=== PATIENT | female | born 1965 | race Caucasian/White ===

== ENCOUNTER 2020-11-05 | Outpatient (REF) | payer MEDICARE, OTHER, SELFPAY | END 2020-11-05 00:01 | disposition home or self-care (01) | LOC: HO.WFDLNP | PROVIDERS: Visit Provider Family Medicine | DX: Z20.822 Contact with and (suspected) exposure to COVID-19 (principal) | CPT/HCPCS: U0003 ==

== ENCOUNTER 2021-07-13 13:10 | Outpatient (REF) | payer MEDICARE, OTHER, SELFPAY ==
--- NOTE | ~2021-07-13 | MM_ITS ---
EXAMINATION: BONE DENSITOMETRY CLINICAL INDICATION: Osteoporosis. COMPARISON: Previous BD dated 08/15/2019 and baseline BD dated 01/23/2009. TECHNIQUE: Using a [employer] DXA System (software version: 13.1) manufactured by [employer], dual-energy x-ray absorptiometry was performed of the lumbar spine and left hip. The images are of good technical quality. Summary results are attached. FINDINGS: AP SPINE L1-L4: Current: BMD 0.863 g/cm2, Z-score -1.2, T-score -2.6, osteoporosis, 5.7% decrease from previous, 8.7% decrease from baseline (<5% change is not significant). Prior: BMD 0.915 g/cm2. Baseline: BMD 0.945 g/cm2. LEFT FEMUR, NECK: Current: BMD 0.659 g/cm2, Z-score -1.3, T-score -2.7, osteoporosis. Prior: BMD 0.754 g/cm2. Baseline: BMD 0.857 g/cm2. LEFT FEMUR, TOTAL: Current: BMD 0.557 g/cm2, Z-score -2.5, T-score -3.6, osteoporosis, 17.2% decrease from previous, 31.9% decrease from baseline (<5% change is not significant). Prior: BMD 0.673 g/cm2. Baseline: BMD 0.818 g/cm2. IDENTIFIED RISK FACTORS: Early menopause, glucocorticoids (chronic), rheumatoid arthritis, secondary osteoporosis. HISTORY OF FRACTURE: None listed. MEDICATIONS: Calcium, vitamin D. MM/XR DEXA axial skeleton IMPRESSION: 1. DIAGNOSIS: Osteoporosis based on the lowest T-score value of -3.6 in the total femur applying World Health Organization criteria. 2. 10-YEAR FRACTURE RISK PREDICTION, FRAX: Major osteoporotic fracture (clinical spine, forearm, hip or shoulder) 16.0%. Hip fracture 4.4%. 3. Treatment Recommendations: NOF guidelines recommend consideration for treatment in postmenopausal women and men age 50 and older presenting with the following: -A hip or vertebral (clinical or morphometric) fracture. -T-score less than or equal to -2.5 at the femoral neck or spine after appropriate evaluation to exclude secondary causes. -Low bone mass at the hip or spine and a 10-year fracture probability by FRAX of greater than or equal to 3% for hip fracture or greater than or equal to 20% for major osteoporotic fracture based on the [place] adapted WHO algorithm. 4. Other Recommendations: All treatment decisions require clinical judgment and consideration of individual patient factors, including patient preferences, comorbidities, previous drug use, risk factors not captured in the FRAX model (e.g. frailty, falls, vitamin D deficiency, increased bone turnover, interval significant decline in bone density) and possible under or overestimation of fracture risk by FRAX. Additional medical evaluation for secondary cause of low bone mineral density may be appropriate. FUTURE SCAN RECOMMENDATION: People with diagnosed cases of osteoporosis or at high risk for fracture should have regular bone mineral density tests. For patients eligible for Medicare, routine testing is allowed once every 2 years. The testing frequency can be increased to one year for patients who have rapidly progressing disease, those who are receiving or discontinuing medical therapy to restore bone mass, or have additional risk factors.
== END 2021-07-13 13:11 | disposition home or self-care (01) ==
LOC: HO.MAMMO 13:10
PROVIDERS: PCP Pediatrics; Visit Provider Pediatrics Pediatric Endocrinology
DX: Z13.820 Encounter for screening for osteoporosis (principal); M81.0 Age-related osteoporosis without current pathological fracture; E27.49 Other adrenocortical insufficiency; M06.9 Rheumatoid arthritis, unspecified; Z78.0 Asymptomatic menopausal state; Z79.899 Other long term (current) drug therapy
CPT/HCPCS: 77080

== ENCOUNTER 2023-07-14 14:45 | Outpatient (REF) | payer OTHER, SELFPAY ==
--- NOTE | ~2023-07-14 | MM_ITS ---
EXAMINATION: BONE DENSITOMETRY CLINICAL INDICATION: Osteoporosis. COMPARISON: Previous BD dated 07/13/2021 and baseline BD dated 01/23/2009. TECHNIQUE: Using a [employer] DXA System (software version: 13.1) manufactured by [employer], dual-energy x-ray absorptiometry was performed of the lumbar spine and left hip. The images are of good technical quality. Summary results are attached. FINDINGS: LEFT FEMUR, NECK: Current: BMD 0.655 g/cm2, Z-score -1.4, T-score -2.8, osteoporosis. Prior: BMD 0.659 g/cm2. Baseline: BMD 0.857 g/cm2. LEFT FEMUR, TOTAL: Current: BMD 0.572 g/cm2, Z-score -2.4, T-score -3.5, osteoporosis, 2.7% increase from previous, 30.1% decrease from baseline (<5% change is not significant). Prior: BMD 0.557 g/cm2. Baseline: BMD 0.818 g/cm2. AP SPINE L1-L4: Current: BMD 1.018 g/cm2, Z-score 0.0, T-score -1.3, osteopenia, 18.0% increase from previous, 7.7% increase from baseline (<5% change is not significant). Prior: BMD 0.863 g/cm2. Baseline: BMD 0.945 g/cm2. IDENTIFIED RISK FACTORS: Early menopause, glucocorticoids (chronic), osteoporosis, rheumatoid arthritis, secondary osteoporosis. HISTORY OF FRACTURE: None listed. MEDICATIONS: Calcium, vitamin D, bisphosphonate. MM/XR DEXA axial skeleton IMPRESSION: 1. DIAGNOSIS: Osteoporosis based on the lowest T-score value of -3.5 in the total femur applying World Health Organization criteria. 2. 10-YEAR FRACTURE RISK PREDICTION, FRAX: According to the guidelines, FRAX calculation should only be performed on patients in the osteopenia bone density category. Therefore, FRAX was not performed on this patient. 3. Treatment Recommendations: NOF guidelines recommend consideration for treatment in postmenopausal women and men age 50 and older presenting with the following: -A hip or vertebral (clinical or morphometric) fracture. -T-score less than or equal to -2.5 at the femoral neck or spine after appropriate evaluation to exclude secondary causes. -Low bone mass at the hip or spine and a 10-year fracture probability by FRAX of greater than or equal to 3% for hip fracture or greater than or equal to 20% for major osteoporotic fracture based on the [place] adapted WHO algorithm. 4. Other Recommendations: All treatment decisions require clinical judgment and consideration of individual patient factors, including patient preferences, comorbidities, previous drug use, risk factors not captured in the FRAX model (e.g. frailty, falls, vitamin D deficiency, increased bone turnover, interval significant decline in bone density) and possible under or overestimation of fracture risk by FRAX. Additional medical evaluation for secondary cause of low bone mineral density may be appropriate. FUTURE SCAN RECOMMENDATION: People with diagnosed cases of osteoporosis or at high risk for fracture should have regular bone mineral density tests. For patients eligible for Medicare, routine testing is allowed once every 2 years. The testing frequency can be increased to one year for patients who have rapidly progressing disease, those who are receiving or discontinuing medical therapy to restore bone mass, or have additional risk factors.
== END 2023-07-14 14:46 | disposition home or self-care (01) ==
LOC: HO.MAMMO 14:45
PROVIDERS: PCP Student in an Organized Health Care Education/Training Program; Visit Provider Student in an Organized Health Care Education/Training Program
DX: Z13.820 Encounter for screening for osteoporosis (principal); M81.0 Age-related osteoporosis without current pathological fracture; Z78.0 Asymptomatic menopausal state
CPT/HCPCS: 77080

== ENCOUNTER 2025-07-25 12:30 | Outpatient (REF) | payer MEDICARE, SELFPAY ==
--- OUTSIDE RECORDS SUMMARY | 2024-09-09 09:15 | XMS_ITS ---
Author Organization [facility] Address [address] [place] [address] Road [address] [place], [place] [id number] Care Team Providers Care Senior Mechanical Development Engineer Name Role Phone Mireya Dolan Primary Care Provider Unavail able [place]is [place] Unavailable [phone] Jacqueline Sanchez MD Unavailable Unavailable Sierra Rabago Unavailable [phone] REASON FOR VISIT 6 Month Follow Up DEIDRE-C Encounters Encounter Location Date Provider Diagnosis [facility] [address] [place], [place] [phone] 09/09/2024 Sierra Rabago Plan Of Treatment Next Appt Details Provider Name:Luis joshi, 09/08/2025 02:00:00 PM, [address], [address], [place], [place], [id number], Progress Notes * Tanja FLYNNDOB:1965 (59 yo F)Acc No.[id number]:09/09/2024 F/U [place] Patient: Estefanía ESPINOZA Tanja Provider: Viki Rabago MD :1965 A ge:58 Y S ex:Female Date:09/09/2024 Address:[address], [id number] Pcp:Mireya Dolan Subjective: * Chief Complaints: * 1 . 6 Month Follow Up DEIDRE-C. * Medical History: Objective: * Vitals: Assessment: Plan: * Treatment: * Images: * Electronic signature of Monique Rabago MD on 07/25/2025 at 01:10 PM EDT Sign off status: Pending * Provider: Viki Rabago MD Date: 11/09/2023 Generated for Alonzo hutton/Sydney/Ernestina on: 01:10 PM EDT
--- NOTE | ~2025-07-25 | MM_ITS ---
EXAMINATION: DXA BONE DENSITY AXIAL HISTORY: M81.0 OSTEOPOROSIS TECHNIQUE: [employer] Dual energy absorptiometry (DEXA) of the lumbar spine, total left hip, and femoral neck was performed. COMPARISON: Comparison is made with the prior examination dated 07/14/2023. FINDINGS: The bone mineral density of the lumbar spine is 0.902 g/cm2, corresponding to a T-score of -2.5, and a Z-score of -1.0. This is indicative of osteoporosis. This represents a BMD change of -10.5% compared to the prior exam. This is statistically significant. The bone mineral density of the left total hip is 0.561 g/cm2, corresponding to a T-score of -3.5, and a Z-score of -2.4. This is indicative of osteoporosis. This represents a BMD change of -1.9% compared to the prior exam. This is not statistically significant. The bone mineral density of the left femoral neck is 0.632 g/cm2, corresponding to a T-score of -2.9, and a Z-score of -1.5. This is indicative of osteoporosis. This represents a BMD change of -3.5% compared to the prior exam. FRACTURE RISK: The FRAX index suggests a ten year probability of major osteoporotic fracture of 27.4%, and of hip fracture 9.3%. MM/XR DEXA axial skeleton IMPRESSION: Based on bone mineral density, and according to World Health Organization (WHO) criteria, the diagnosis is consistent with osteoporosis. Statistically, 68% of repeat scans fall within 1 SD (+/- 0.010 g/cm2 for AP spine L1-L4) and 1 SD (+/- 0.012 g/cm2 for femur total) FRAX is a trademark of the [employer], a World Health Organization (WHO) Collaborating Center. Electronically signed by: Lisandro Cancino MD 07/25/2025 01:08 PM EDT
--- OUTSIDE RECORDS SUMMARY | 2025-07-25 13:11 | XMS_ITS | Patient Health Record ---
Author Organization [facility] [place] Address [address] [place] [id number] Care Team Providers Care Construction Trench Digger Name Role Phone Mireya Dolan Primary Care Provider Unavail able [place] Unavailable Jacqueline Sanchez MD Unavailable Unavailable Sierra Rabago Unavailable [phone] Lorna Henry Unavailable [phone] Luis Leon Unavailable [phone] Allergies Allergen (clinical drug ingredient) Drug/Non Drug Allergy documented on EMR Reaction Allergy Type Onset Date Status EPINEPHrine anaphylaxis Drug Allergy Act gorge sulfites anaphylaxis Drug Allergy Activ e Reason For Referral No Information Medications Medication SIG (Take, Route, Frequency, Duration) Notes Start Date End Date Status Calcium 600 MG 1 tablet with meals Orally Twice a day; Duration: 30 day(s) Active Vitamin B 12 100 MCG as directed Orally Active Terbinafine 250mg Active Vitamin D (Ergocalciferol) 69832 UNIT TAKE 1 CAPSULE BY MOUTH EVERY WEEK Oral; Duration: 84 Active Entresto 24-26 MG 1 tablet Orally Twic e a day Active Fasenra 30 MG/ML 1 null Subcutaneous Active Farxiga 10 MG 1 tablet Orally Once a day Active Furosemide 20 MG 1 tablet Orally Once a day Active LORazepam 1 MG 1 tablet at bedtime as needed Orally Once a day Active Dorzolamide HCl 2 % 1 drop into affected eye Ophthalmic Three times a day Active cloNIDine 0.2 MG/24HR 1 patch to skin Transdermal Active Metoprolol Succinate 25 MG 1 capsule Orally Once a day Active Aspir-81 Active Albuterol prn Active Suboxone 2-0.5 MG 1 film under the tongue and allow to dissolve Sublingual Once a day Active Hydrocortisone 5 MG 1 tablet with food o r milk Orally every 8 hrs 15 mg daily Active Problems Problem Type SNOMED Code ICD Code Onset Dates Problem Status W/U Status Risk Notes Problem Primary insomnia (2505179) Primary insomnia (F51.01) Active confirmed Problem Obstructive sleep apnea syndrome (72724392) DEIDRE (obstructive sleep apnea) (G47.33) Active confirmed Problem Excessive daytime sleepiness (8786226646) Excessive daytime sleepiness (G47.19) Active confirmed Problem Anxiety (50805767) Anxiety (F41.9) Active confirmed Problem Uncomplicated moderate persistent asthma (369063418) Moderate persistent asthma without complication (J45.40) Active confirmed Problem Vasculitis (18077817) Vasculitis (I77.6) Active confirmed Problem Depressive disorder (disorder) (15840933) Depression, unspecified depression type (F32.9) Active confirmed Problem Poor sleep pattern (828904328) Poor sleep pattern (G47.8) Active confirmed Problem Personal history of primary malignant neoplasm of breast (802426283) History of breast cancer (Z85.3) Active confirmed Problem Treatment-emergen t central sleep apnea (843237898) Treatment-emerge nt central sleep apnea (G47.31) Active confirmed Vital Signs Heart Rate 52 /min 07/14/2025 Temperature 97.1 degrees Fahrenheit 03/31/2025 Respiratory Rate 16 /min 07/14/2025 Blood pressure diastolic 78 mm Hg 07/14/2025 Height 64 in 07/14/2025 Blood pressure systolic 118 mm Hg 07/14/2025 Weight 122 lbs 07/14/2025 BMI 20.94 kg/m2 07/14/2025 Encounters Encounter Location Date Provider Diagnosis [facility] [address] [id number] 09/27/2024 Lorna Henry DEIDRE (obstructive sleep apnea) G47.33 ; Treatment-emergent central sleep apnea G47.31 ; Primary insomnia F51.01 ; Excessive daytime sleepiness G47.19 and Poor sleep pattern G47.8 [facility] [address] [id number] 03/31/2025 Lorna Henry DEIDRE (obstructive sleep apnea) G47.33 ; Treatment-emergent central sleep apnea G47.31 ; Primary insomnia F51.01 ; Excessive daytime sleepiness G47.19 and Poor sleep pattern G47.8 [facility] - [address] [id number] 07/14/2025 Luis Leon DEIDRE (obstructive sleep apnea) G47.33 ; Treatment-emergent central sleep apnea G47.31 ; Primary insomnia F51.01 ; Excessive daytime sleepiness G47.19 and Poor sleep pattern G47.8 [facility] - [address] [id number] 04/08/[address] [facility] [address] [place], [place] [id number] 05/28/2025 [facility] [address] [place], [place] [id number] 07/07/[address] [facility] [address] [id number] 04/07/[address] [facility] [address] [id number] 04/24/[address] [facility] [address] [id number] 04/28/2025 Esquivel [facility] [address] [id number] 05/11/2025 Esquivel [facility] [address] [id number] 06/19/[address] [facility] [address] [id number] 07/07/2025 Luis Leon Assessments Encounter Date Diagnosis (ICD Code) Assessment Notes Treatment Notes Treatment Clinical Notes Section Notes 09/27/2024 DEIDRE (obstructive sleep apnea) (ICD-10 - G47.33) She is using her ASV machine and benefiting from using it. I will obtain copy of recent echocardiogram given her recent history of ventricular tachycardia with low EF. For now she will continue on ASV with same settings. I will reevaluate her in six months. 03/31/2025 DEIDRE (obstructive sleep apnea) (ICD-10 - G47.33) She is using her ASV machine and benefiting from using it. Recent history of ventricular tachycardia with low EF. Most recent echo from 11/06/2024 shows EF 35-40%. I will send her for CPAP/BiPAP titration as ASV is not indicated in patients with EF less than 45%. For now she will continue on ASV with same settings. ASV care instructions were reviewed. 07/14/2025 DEIDRE (obstructive sleep apnea) (ICD-10 - G47.33) Will need to start on CPAP 03/31/2025 Treatment-emerg ent central sleep apnea (ICD-10 - G47.31) As above. Continue on ASV. 09/27/2024 Treatment-emerg ent central sleep apnea (ICD-10 - G47.31) Continue on ASV. 07/14/2025 Treatment-emerg ent central sleep apnea (ICD-10 - G47.31) As above. Start CPAP 09/27/2024 Primary insomnia (ICD-10 - F51.01) Patient has been doing very well and does not want to trial medication. Previously failed therapy with multiple medications. She is aware that her bedroom should be cool quiet and dark. Advised to get up and read a book or a magazine if she is unable to sleep for 20 or 30 minutes, then go back to bed when she is sleepy. 03/31/2025 Primary insomnia (ICD-10 - F51.01) Patient has been doing very well and does not want to trial medication. Previously failed therapy with multiple medications. She is aware that her bedroom should be cool quiet and dark. Advised to get up and read a book or a magazine if she is unable to sleep for 20 or 30 minutes, then go back to bed when she is sleepy. 07/14/2025 Primary insomnia (ICD-10 - F51.01) Patient has been doing very well and does not want to trial medication. Previously failed therapy with multiple medications. She is aware that her bedroom should be cool quiet and dark. Advised to get up and read a book or a magazine if she is unable to sleep for 20 or 30 minutes, then go back to bed when she is sleepy. 07/14/2025 Excessive daytime sleepiness (ICD-10 - G47.19) Will switch to CPAP 03/31/2025 Excessive daytime sleepiness (ICD-10 - G47.19) Improved with ASV. 09/27/2024 Excessive daytime sleepiness (ICD-10 - G47.19) Improved with ASV. 09/27/2024 Poor sleep pattern (ICD-10 - G47.8) Advised to maintain a regular bedtime and wakeup time. She has been doing well with this. 03/31/2025 Poor sleep pattern (ICD-10 - G47.8) Advised to maintain a regular bedtime and wakeup time. She has been doing well with this. 07/14/2025 Poor sleep pattern (ICD-10 - G47.8) Advised to maintain a regular bedtime and wakeup time. She has been doing well with this. Plan Of Treatment Pending Test Test Name Order Date SLEEP STUDY CPAP/BiPAP TITRATION 025 COVID-19 PCR, PRE-PROCEDURE (ASYMPTOMATI C) 06/27/2020 COVID-19 PCR, PRE-PROCEDURE (ASYMPTOMATI C) 08/18/2020 Next Appt Details Provider Name:Luis Ruth joshi, 09/08/2025 02:00:00 PM, [address] [facility], [address], [place], [place], [phone], Insurance Providers Payer Name Payer Address Payer Phone Subscriber Number Group Number Insured Name Patient Relationship to Insured Coverage Start Date Coverage End Date [employer] Preferred [address] [place] [address] [id number] Tanja Murray Self - patient is the insured Medical (General) History Medical History History ICD Code Anxiety F41.9 Depression, unspecified depression type F32.9 Moderate persistent asthma without compl ication J45.40 History of breast cancer Z85.3 Vasculitis I77.6 Primary insomnia F51.01 DEIDRE (obstructive sleep apnea) G47.33 Surgical History Surgery Date(Month/Year) Mastectomy Breast reconstruction Cataract removal, bilateral Hip surgery Gastric bypass Hospitalization History Reason Date(Month/Year) Medication reaction 07/2018
--- OUTSIDE RECORDS SUMMARY | 2025-07-25 13:11 | XMS_ITS | Patient Health Record ---
Author Organization [facility] Address [address] [address] Care Team Providers Care Telephone Repairer Name Role Phone Dr Jacqueline Sanchez Primary Care Provider KEYLA Nguyen Unavailable [phone] Allergies Allergen (clinical drug ingredient) Drug/Non Drug Allergy documented on EMR Reaction Allergy Type Onset Date Status Substance with sulfonamide structure and antibacterial mechanism of action (substance) SULFA (uncoded) Unknown Allergy Active EPINEPHrine Unknown Drug Allergy Activ e Reason For Referral No Information Medications Medication SIG (Take, Route, Frequency, Duration) Notes Start Date End Date Status Fludrocortisone Acetate 0.1 MG 2 tablets Orally once a day Active Albuterol Sulfate HFA 108 (90 Base) MCG/ACT INHALE 2 PUFFS BY MOUTH FOUR TIMES DAILY NEEDED FOR WHEEZING/SHORTNESS OF BREATH Inhalation; Duration: 16 Active Vitamin D (Ergocalciferol) 1.25 MG (27335 UT) 1 capsule Orally; Duration: 30 day(s) Active Hydrocortisone 10 MG 1 tablet with food or milk Orally Once a day Active Calcium 600 MG 1 tablet with meals Orally Twice a day; Duration: 30 day(s) Active Vitamin D 25 MCG (1000 UT) 1 tablet Oral ly Once a day; Duration: 30 day(s) Active Latuda 80 MG 1 tablet with food Orally Once a day Active Suboxone 4-1 MG 1 film under the ton nathalia and allow to dissolve Sublingual Once a day Active Nucala 100 MG/ML as directed Subcutan eous every 4 weeks Active Metoprolol Succinate ER 25 MG Oral; Duration: 30 Active LORazepam 1 MG (Schedule IV Drug) T LISA 1 TABLET BY MOUTH UP TO THREE TIMES DAILY NEEDED FOR ANXIETY Oral; Duration: 30 Active OLANZapine 5 MG 5mg in AM and 20mg i n PM Oral twice a day; Duration: 30 Active Social History Tobacco Use: Social History Observation Description Date Details (start date - stop date) Never Smoker NA - NA Tobacco Use/Smoking Question Answer Notes Are you a nonsmoker Problems Problem Type SNOMED Code ICD Code Onset Dates Problem Status W/U Status Risk Notes Problem 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) Active confirmed Problem Anxiety (74384203) Anxiety (F41.9) Active confirmed Problem Seizure disorder (664860351) Seizure disorder (G40.909) Active confirmed Problem Neuropathy (334066614) Neuropathy (G62.9) Active confirmed Problem Depression (174238412) Depression (F32.9) Active confirmed Problem Sleep apnea (89416239) Sleep apnea (G47.30) Active confirmed Problem Seizure (67201774) Seizures (R56.9) Active confirmed Problem Posttraumatic stress disorder (69605832) PTSD (post-traumatic stress disorder) (F43.10) Active confirmed Problem Obstructive sleep apnea (76786442) Obstructive sleep apnea (G47.33) Active confirmed Problem Hypertension (34383900) HTN (hypertension) (I10) Active confirmed Problem Bipolar 1 disorder (644522353) Bipolar 1 disorder (F31.9) Active confirmed Problem Insomnia disorder related to another mental disorder (19881826) Psychophysiological insomnia (F51.04) Active confirmed Problem Bipolar affective disorder, currently depressed, moderate (085144785) Bipolar affective disorder, currently depressed, moderate (F31.32) Active confirmed Problem Arteritis (87726024) 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 (I77.6) Active confirmed Plan Of Treatment No Information Insurance Providers Payer Name Payer Address Payer Phone Subscriber Number Group Number Insured Name Patient Relationship to Insured Coverage Start Date Coverage End Date [employer] P[employer] [address] [place] [id number] Trevor Tanja Self - patient is the insured MEDICARE [address] [place] [id number] [phone] [id number] Tanja Murray Self - patient is the insured Medical (General) History Medical History History ICD Code Seizures R56.9 Sleep apnea G47.30 Bipolar 1 disorder F31.9 Depression F32.9 Anxiety F41.9 HTN (hypertension) I10 Neuropathy G62.9 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
--- OUTSIDE RECORDS SUMMARY | 2025-07-25 13:11 | XMS_ITS ---
Author Name [facility] Organization Unknown Care Team Organization Name Specialty Phone Email Start Date End Da te [facility] Termed, PROVIDER Primary Care 08/30/202205/23
== END 2025-07-25 12:31 | disposition home or self-care (01) ==
LOC: HO.MAMMO 12:30
PROVIDERS: PCP Internal Medicine; Visit Provider Student in an Organized Health Care Education/Training Program
DX: M81.0 Age-related osteoporosis without current pathological fracture (principal)
CPT/HCPCS: 77080

== ENCOUNTER → 2025-07-25 13:00 | Outpatient (BNV) | payer MEDICARE, SELFPAY | PROVIDERS: PCP Internal Medicine; Visit Provider Radiology Diagnostic Radiology | DX: E28.39 Other primary ovarian failure (principal) | CPT/HCPCS: 77080 ==